=== PATIENT | female | born 1970 | race Caucasian/White ===

== ENCOUNTER → 2019-12-13 | Outpatient (CLI) | payer BC ==
--- NOTE | 2019-12-16 12:06 | RAD ---
EXAM DESCRIPTION: Lumbar Spine 3 Views: CR/DR/x-ray. CLINICAL HISTORY: 49 years Female back pain COMPARISON: None. TECHNIQUE: 2/3 Views lumbar spine. AP Lateral lumbosacral lateral spot L5-S1. FINDINGS: Lumbar type vertebra: 5. Transitional vertebrae: None. Disc spaces: L5-S1 difficult to visualize, the remaining disc spaces are maintained. Facet joints: Negative. Compression deformities: None. Bone Density: Normal. Alignment: Mild levoscoliosis L3-L5. Abdomen: Negative. IMPRESSION: Limited study due to poor visualization of the L5-S1 disc space. Recommend follow-up bilateral lumbosacral collimated image. Minimal levoscoliosis L3-L5. No compression type vertebral body fracture. Electronically signed by: Steffen Jaramillo MD 12/16/2019 12:04 PM [facility]
== END ==
LOC: RAD 14:26
PROVIDERS: ATTEND Internal Medicine Rheumatology
DX: M41.86 Other forms of scoliosis, lumbar region (principal); W19.XXXD Unspecified fall, subsequent encounter

== ENCOUNTER → 2020-07-23 | Outpatient (CLI) | payer BC | LOC: LAB.O 14:58 | PROVIDERS: ATTEND Internal Medicine Rheumatology | DX: D64.9 Anemia, unspecified (principal) ==

== ENCOUNTER → 2020-12-11 | Outpatient (CLI) | payer OTHER | LOC: LAB.O 14:21 | PROVIDERS: ATTEND Internal Medicine Rheumatology | DX: M06.09 Rheumatoid arthritis without rheumatoid factor, multiple sites (principal); Z79.899 Other long term (current) drug therapy ==